=== PATIENT | female | born 1970 | race African-American/Black ===

== ENCOUNTER 2017-01-18 21:10 | Emergency (ER) | payer OTHER ==
[~2017-01-18] VITALS: Ht 165.1 cm; Wt 104.3 kg
[~2017-01-18 21:10] MED LIST: ADVIL100 M2 PO; AMOXICILLIN 50500 M1 PO; ANTIVERT25 MG PO; BACTRIM DS TAB1 EACH PO; CIPROFLOXACIN500 M1 PO; COLACE 100 MG100 MG PO; DIFLUCAN150 MG PO; FLAGYL500 MG PO; HYDROCHLOROTHIA25 M1 PO; IBUPROFEN 600600 M1 PO; KEFLEX500 MG PO; LISINOPRIL-HCT1 EACH PO; MACROBID 100 M100 M1 PO; NOHOMEMEDICATIONS; NORCO 5-325 TA1 EACH PO; NORVASC 5 MG TAB5 MG PO; ONDANSETRON HCL4 M2 PO; PYRIDIUM200 MG PO; SIMETHICON CHEW80 M1 PO
[2017-01-18] MEDS ORDERED: HYDROCHLOROTH12.5 M1 PO (21:13)
[2017-01-18] MEDS ORDERED: LISINOPRIL10 MG PO (21:13)
[2017-01-18 21:54] LABS: URINE BILIRUBIN NEGATIVE (Negative); URINE BLOOD TRACE (Negative); URINE COLOR YELLOW; URINE GLUCOSE-RANDOM* NEGATIVE (Negative); URINE KETONES NEGATIVE (Negative); URINE NITRITE NEGATIVE (Negative); URINE PROTEIN (DIPSTICK) NEGATIVE (Negative); URINE UROBILINOGEN 0.2 E.U./dl (0.2-1.0)
[2017-01-18] MEDS ORDERED: IBUPROFEN 600600 M1 PO (22:09)
[2017-01-18] MEDS ORDERED: TESSALON PERLE100 MG PO (22:09)
[2017-01-18 22:16] LABS: CASTS None Seen /LPF (None Seen); SQUAMOUS 4-10 Moderate /LPF (0-3)
[2017-01-18 22:17] LABS: BACTERIA 1-9 Few /HPF (None Seen); CRYSTALS None Seen /LPF (None Seen); URINE RBC 0-2 Rare /HPF (0-2); URINE WBC 0-5 Rare /HPF (0-5)
== END 2017-01-18 22:31 | disposition home or self-care (01) ==
LOC: ER 21:10
PROVIDERS: Nurse Practitioner
DX: J02.9 Acute pharyngitis, unspecified (principal); I10 Essential (primary) hypertension; Z90.711 Acquired absence of uterus with remaining cervical stump

== ENCOUNTER 2017-06-22 16:50 | Emergency (ER) | payer OTHER ==
[~2017-06-22] VITALS: Ht 157.5 cm; Wt 99.8 kg
[~2017-06-22 16:50] MED LIST changes: +HYDROCHLOROTH12.5 M1 PO; +LISINOPRIL10 MG PO; +TESSALON PERLE100 MG PO
[2017-06-22 17:11] LABS: URINE BILIRUBIN NEGATIVE (Negative); URINE BLOOD TRACE (Negative); URINE CLARITY CLEAR; URINE COLOR YELLOW; URINE GLUCOSE-RANDOM* NEGATIVE (Negative); URINE KETONES NEGATIVE (Negative); URINE LEUKOCYTES 2+ (Negative); URINE NITRITE NEGATIVE (Negative); URINE PROTEIN (DIPSTICK) NEGATIVE (Negative); URINE SPECIFIC GRAVITY 1.025 (1.005-1.035); URINE UROBILINOGEN 0.2 E.U./dl (0.2-1.0)
[2017-06-22 17:20] LABS: CASTS None Seen /LPF (None Seen); MUCUS 4-6 Moderate strn/LPF (None Seen); SQUAMOUS >10 Many /LPF (0-3); URINE RBC 0-2 Rare /HPF (0-2); URINE WBC >25 Many /HPF (0-5)
[2017-06-22 17:21] LABS: BACTERIA >30 Many /HPF (None Seen); CRYSTALS None Seen /LPF (None Seen)
[2017-06-22] MEDS ORDERED: IBUPROFEN 600600 M1 PO (17:29)
[2017-06-22] MEDS ORDERED: CEFUROXIME500 MG PO (17:29)
[2017-06-22 18:07] VITALS: BP 140/89
== END 2017-06-22 18:04 | disposition home or self-care (01) ==
LOC: ER 16:50
PROVIDERS: Nurse Practitioner
DX: H66.93 Otitis media, unspecified, bilateral (principal); N39.0 Urinary tract infection, site not specified; I10 Essential (primary) hypertension; Z90.711 Acquired absence of uterus with remaining cervical stump

== ENCOUNTER 2020-09-06 17:04 | Emergency (ER) | payer OTHER ==
[~2020-09-06] VITALS: Ht 162.6 cm; Wt 113.4 kg
[~2020-09-06 17:04] MED LIST changes: +CEFUROXIME500 MG PO
[2020-09-06 17:49] VITALS: BP 145/93
[2020-09-06 19:21] LABS: URINE BILIRUBIN NEGATIVE (Negative); URINE BLOOD 1+ (Negative); URINE CLARITY CLEAR; URINE COLOR YELLOW; URINE GLUCOSE-RANDOM* NEGATIVE (Negative); URINE KETONES NEGATIVE (Negative); URINE NITRITE-REFLEX NEGATIVE (Negative); URINE PROTEIN (DIPSTICK) NEGATIVE (Negative); URINE SPECIFIC GRAVITY 1.025 (1.005-1.035); URINE UROBILINOGEN 0.2 E.U./dl (0.2-1.0)
[2020-09-06 19:22] LABS: URINE LEUKOCYTES-REFLEX 3+ (Negative)
[2020-09-06 19:43] LABS: SQUAMOUS >10 Many /LPF (0-3); URINE WBC-REFLEX >25 Many /HPF (0-5)
[2020-09-06 19:45] LABS: CASTS None Seen /LPF (None Seen); CRYSTALS None Seen /LPF (None Seen); URINE RBC 1-2 Rare /HPF (NONE SEEN)
== END 2020-09-06 19:05 | disposition left against medical advice (07) ==
LOC: ER 17:04
PROVIDERS: Physician Assistant
DX: R30.0 Dysuria (principal); Z53.21 Procedure and treatment not carried out due to patient leaving prior to being seen by health care provider

== ENCOUNTER 2021-03-26 18:01 | Emergency (ER) | payer OTHER ==
[~2021-03-26] VITALS: Ht 165.1 cm; Wt 122.5 kg
[2021-03-26] MEDS ORDERED: TESSALON PERLE100 MG PO (19:36)
[2021-03-26 20:14] VITALS: BP 146/82
== END 2021-03-26 20:32 | disposition home or self-care (01) ==
LOC: ER 18:01
DX: R05.9 Cough, unspecified (principal); I10 Essential (primary) hypertension; Z90.711 Acquired absence of uterus with remaining cervical stump; Z79.899 Other long term (current) drug therapy